=== PATIENT | female | born 1990 | race Asian ===

== ENCOUNTER 2019-10-15 19:10 | Emergency (ER) | payer OTHER ==
[~2019-10-15] VITALS: Ht 162.6 cm; Wt 92.5 kg
[2019-10-15 19:30] VITALS: BP 153/88
--- NOTE | 2019-10-15 19:38 | NUR ---
PT TAKEN TO BED 3
--- NOTE | 2019-10-15 19:58 | NUR ---
Dr. Vance examining patient.
[2019-10-15 20:26] LABS: HEMATOCRIT 39.5 % (36-48); HEMOGLOBIN 12.9 g/dL (12.0-16.0); MEAN CORPUSCULAR HEMOGLOBIN 27 pg (27-31); MEAN CORPUSCULAR HGB CONC 33 g/dL (33-37); MEAN CORPUSCULAR VOLUME 83.6 fL (80-94); PLATELET COUNT (AUTO) 226 K/uL (140-450); RED BLOOD CELL COUNT(AUTO) 4.73 MIL/uL (4.20-5.40); RED CELL DISTRIBUTION WIDTH 14.2 % (11.6-13.7); WHITE BLOOD COUNT (AUTO) 14.4 K/uL (4.8-10.8)
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
--- NOTE | 2019-10-15 20:32 | NUR ---
PT TO CT XRAY
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
[2019-10-15 20:43] LABS: BILIRUBIN,URINE NEGATIVE (NEGATIVE); BLOOD, URINE 3+ (NEGATIVE); COLOR,URINE YELLOW (YELLOW); LEUKOCYTE ESTERASE ,URINE TRACE (NEGATIVE); NITRITE, URINE POSITIVE (NEGATIVE); UGLUCOSE NEGATIVE (NEGATIVE)
[2019-10-15 20:48] LABS: ALBUMIN 3.7 g/dL (3.4-5.0); CARBON DIOXIDE 23.2 mmol/L (21-32); POTASSIUM 3.2 mmol/L (3.5-5.1); TOTAL BILIRUBIN 0.4 mg/dL (0.0-1.0)
[2019-10-15 20:51] LABS: APPEARANCE,URINE HAZY (CLEAR)
[2019-10-15 20:52] LABS: LYMPHOCYTES % (MANUAL) 12 % (20-46); METAMYELOCYTES % 1 % (0-0)
[2019-10-15 20:54] LABS: RBC,URINE 20-50 /HPF (0-5)
[2019-10-15] MEDS ORDERED: CIPROFLOXACIN 250 MG TAB PO ONE (21:25)
[2019-10-15 21:42] VITALS: BP 145/81
--- NOTE | 2019-10-15 21:44 | NUR ---
Patient discharged with v/s stable. Written and verbal after care instructions given and explained. Patient alert, oriented and verbalized understanding of instructions. Ambulatory with steady gait. All questions addressed prior to discharge. ID band removed. Patient advised to follow up with PMD. Rx of MOTRIN, NORCO, ZOFRAN, AND CIPRO given. Patient educated on indication of medication including possible reaction and side effects. Opportunity to ask questions provided and answered.
== END 2019-10-15 21:44 | disposition home or self-care (01) ==
LOC: MED 19:10
DX: N12 Tubulo-interstitial nephritis, not specified as acute or chronic (principal)
CPT/HCPCS: 36415; 80053; 81001; 81025; 85025; 87086; 87186; 99284

== ENCOUNTER 2021-01-18 09:56 | Observation (INO) | payer OTHER ==
[~2021-01-18] VITALS: Ht 162.6 cm; Wt 103.9 kg
[2021-01-18] MEDS ORDERED: PREN-371 PO (10:42)
[2021-01-18] MEDS ORDERED: LABE1PLA IV (10:42)
[2021-01-18] MEDS ORDERED: ASPI-1822 PO (10:42)
[2021-01-18] MEDS ORDERED: BETAMETH ACET/BETAMETH NA PH 30 MG/5 ML VIAL IM SCH (16:00)
[2021-01-18] MEDS: LABETALOL 100 MG TAB PO SCH (21:00)
[2021-01-18] MEDS ORDERED: ECOTRIN 81 MG TABEC PO SCH (21:00)
--- NOTE | 2021-01-19 06:51 | NUR ---
PATIENT HAS BEEN SCREENED AND CATEGORIZED LOW NUTRITION RISK. PATIENT WILL BE SEEN WITHIN 7 DAYS OF ADMISSION. 01/25/21 ANTONIO SHRESTHA MS, RDN
[2021-01-19] MEDS: LABETALOL 100 MG TAB PO SCH (08:55)
[2021-01-19] MEDS ORDERED: ECOTRIN 81 MG TABEC PO SCH (09:00)
[2021-01-19] MEDS ORDERED: BETAMETH ACET/BETAMETH NA PH 30 MG/5 ML VIAL IM SCH (16:00)
== END 2021-01-19 16:10 | disposition home or self-care (01) ==
LOC: UNDOADMOB 09:56 → MLD 09:56
PROVIDERS: ADMIT Obstetrics & Gynecology; ATTEND Obstetrics & Gynecology
DX: O36.8130 Decreased fetal movements, third trimester, not applicable or unspecified (principal); O10.913 Unspecified pre-existing hypertension complicating pregnancy, third trimester; O99.343 Other mental disorders complicating pregnancy, third trimester; F41.9 Anxiety disorder, unspecified; O99.283 Endocrine, nutritional and metabolic diseases complicating pregnancy, third trimester; E78.00 Pure hypercholesterolemia, unspecified; Z3A.36 36 weeks gestation of pregnancy; Z79.82 Long term (current) use of aspirin
CPT/HCPCS: 59025; 76819; 87653; 96372; G0378; G0379; J0702; Q0092